=== PATIENT | female | born 1960 | race Asian ===

== ENCOUNTER 2019-08-12 04:16 | Emergency (ER) | payer BC ==
[~2019-08-12] VITALS: Ht 157.5 cm; Wt 55.1 kg
[2019-08-12 04:29] VITALS: Ht 157.5 cm; Wt 55.1 kg
[2019-08-12 07:06] VITALS: BP 139/48
== END 2019-08-12 07:06 | disposition home or self-care (01) ==
LOC: ED 04:16
DX: R00.2 Palpitations (principal); R68.83 Chills (without fever); R25.1 Tremor, unspecified; Z90.710 Acquired absence of both cervix and uterus
CPT/HCPCS: 82962